=== PATIENT | male | born 1995 | race Asian ===

== ENCOUNTER 2022-07-20 14:38 | Emergency (ER) | payer OTHER ==
[~2022-07-20] VITALS: Ht 182.9 cm; Wt 72.6 kg
[2022-07-20 18:00] VITALS: BP 129/78; TEMP 98
== END 2022-07-20 18:06 | disposition home or self-care (01) ==
LOC: ED 14:38
DX: S03.2XXA Dislocation of tooth, initial encounter (principal); S01.531A Puncture wound without foreign body of lip, initial encounter; S02.40DA Maxillary fracture, left side, initial encounter for closed fracture; Y04.2XXA Assault by strike against or bumped into by another person, initial encounter; Y92.89 Other specified places as the place of occurrence of the external cause
CPT/HCPCS: 99283